=== PATIENT | female | born 1970 | race Two or more races ===

== ENCOUNTER → 2017-01-22 | Outpatient (CLI) | payer BC ==
[2017-01-22 18:28] LABS: HEMOGLOBIN 11.7 g/dL (12.2-16.2)
[2017-01-22 18:29] LABS: LYMPH % 24.3 % (10-50.0)
[2017-01-22 18:30] LABS: LYMPH # 2.2 K/mm3 (0.7-4.5)
[2017-01-22 19:32] LABS: BUN 8 mg/dL (7-18)
[2017-01-22 19:38] LABS: GFR (ESTIMATED) 77 ML/MIN (59-)
[2017-01-24 08:41] LABS: RA Latex Turbid. <10.0 IU/mL (0.0-13.9); Vitamin D, 25-Hydroxy 18.9 ng/mL (30.0-100.0)
== END ==
LOC: LAB 18:04
PROVIDERS: Nurse Practitioner Family
DX: R53.83 Other fatigue (principal); E55.9 Vitamin D deficiency, unspecified; M25.559 Pain in unspecified hip; E66.9 Obesity, unspecified; Z79.899 Other long term (current) drug therapy